=== PATIENT | female | born 1975 | race Caucasian/White ===

== ENCOUNTER 2022-11-07 08:00 | Outpatient (CLI) | payer MEDICAID | END 2022-11-07 23:59 | disposition home or self-care (01) | LOC: LAB.R 08:00 | PROVIDERS: ATTEND Nurse Practitioner | DX: N90.89 Other specified noninflammatory disorders of vulva and perineum (principal) | CPT/HCPCS: 87252 ==

== ENCOUNTER 2022-11-07 10:16 | Outpatient (CLI) | payer MEDICAID ==
[2022-11-07 10:29] LABS: HCT - HEMATOCRIT 38.8 % (37.0-47.0); HGB - HEMOGLOBIN 12.9 g/dL (12.0-16.0); MEAN CORPUSCULAR HEMOGLOBIN 31.2 pg (27.0-31.0); MEAN CORPUSCULAR HGB CONC 33.2 g/dL (32.0-36.0); MEAN CORPUSCULAR VOLUME 93.9 fL (81.0-99.0); MEAN PLATELET VOLUME 10.5 fL (7.9-10.8); RED BLOOD COUNT 4.13 10^6/uL (4.20-5.40); RED CELL DISTRIBUTION WIDTH 12.3 % (12.0-15.0); WHITE BLOOD COUNT 6.1 x10^3/uL (4.8-10.8)
[2022-11-07 11:03] LABS: THYROID STIMULATING HORMONE 1.51 uIU/mL (0.34-5.60)
[2022-11-07 11:08] LABS: FREE T4 (FREE THYROXINE) 0.77 ng/dL (0.58-1.64)
[2022-11-07 11:09] LABS: FERRITIN 48.2 ng/mL (11.0-306.8)
[2022-11-07 11:31] LABS: FOLLICLE STIMULATING HORMONE 0.78 mIU/mL; LUTEINIZING HORMONE 0.41 mIU/mL
== END 2022-11-07 10:17 | disposition home or self-care (01) ==
LOC: LAB 10:16
PROVIDERS: ATTEND Nurse Practitioner
DX: N92.6 Irregular menstruation, unspecified (principal); N90.89 Other specified noninflammatory disorders of vulva and perineum; R53.83 Other fatigue; Z13.29 Encounter for screening for other suspected endocrine disorder
CPT/HCPCS: 36415; 82728; 83001; 83002; 84439; 84443; 85027; 87252